=== PATIENT | female | born 1940 | race Caucasian/White ===

== ENCOUNTER → 2018-01-20 | Outpatient (CLI) | payer OTHER, MEDICARE ==
[~2018-01-20] MED LIST: ASPIRIN81 M2 PO; ATENOLOL 25 MG25 M1 PO; CO Q-10100 MG PO; COUMADIN 1MG TAB1 M1 PO; COUMADIN 2 MG TA2 M1 PO; COZAAR100 MG PO; FISH OIL 1,0001 EAC5 PO; FOLIC ACID0.8 MG PO; GLUCOPHAGE1000 MG PO; KLOR-CON 10 ER10 MEQ PO; LASIX 20 MG TAB20 MG PO; LEVOTHROID75 MCG PO; PACERONE 200 M200 M1 PO; VITAMIN B-12500 MCG PO; VITAMIN D31000 UNI2 PO; ZANTAC 150MG T150 M1 PO
== END ==
LOC: RAD 06:44
DX: J98.4 Other disorders of lung (principal); I51.7 Cardiomegaly; R06.00 Dyspnea, unspecified

== ENCOUNTER → 2018-02-04 | Outpatient (CLI) | payer OTHER, MEDICARE ==
[~2018-02-04] VITALS: Ht 147.3 cm; Wt 41.7 kg
[~2018-02-04] MED LIST changes: +CRESTOR40 MG PO; +DEMADEX20 MG PO; +DIGOXIN250 MCG PO; +ELIQUIS5 MG PO; +IRON325 PO; +LEVEMIR SUBQ; +LOPERAMIDE 2 MG2 M1 PO; +MULTI VITAMIN1 EACH PO; +NITROGLYCERIN0.4 MG PO; +SYNTHROID75 MCG PO; +SYNTHROID88 MCG PO
--- NOTE | ~2018-02-04 | CATHLAB ---
[facility] [address] [place] [address] INVASIVE PROCEDURE REPORT Name: ADRIANABLAKE Room #: REG ROSALIE Stanford#: [id number] Admission: 02/04/18 Attend Phys: Jian Krishna, Discharge: Date of : 38 Date of Service: 02/04/18 1710 Report #: [id number] THIS REPORT FOR: //name// APPROVED REPORT Study performed: 02/04/2018 08:48:29 Patient Details Patient Status: Out-Patient Room #: The patient is a 77 year-old female Event Personnel Jian Krishna Cloud Physicist, Aleta GlezR, Misael Gonzales Amber Monitor, Zachery Wagner RN elevator service mechanic Performed Art Access - R femoral artery* Dio Access - R femoral vein Right and Left Heart Cath w/or w/o Coronarie [id number] [facility] Aortogram Abdominal Peripheral Angio 158314 Hemostasis w/ Mynx 80761 Initial Mod Sed Same Phys/QHP Gr5y 075155 83012 Mod Sed Same Phys/QHP Ea 754787 Indication Chest pain Procedure Narrative The patient was brought electively to the Cardiac Catheterization Laboratory and was prepped and draped in a sterile manner. The Right Groin^ was infiltrated with 1% Lidocaine subcutaneous anesthesia. A Right Heart Catheterization was performed with a 7 Fr. [place]-Klaus catheter and pressure were recorded. Cardiac outputs were obtained by the Thermal Dilution method. A PINNACLE 6FR Sheath #[id number] sheath was inserted into the RFA^. Coronary angiography was performed using coronary diagnostic catheters. The right coronary system was accessed and visualized with a JR 4 catheter. The left coronary system was accessed and visualized with a JL 4 catheter. The left ventricle was accessed and visualized with a Pigtail catheter. Left ventriculogram was performed in BEAR projection. An aortogram of the abdominal aorta was performed. Pre-demployment femoral angiogram was performed . Closure device was deployed with a 6 Fr Mynx. Hemostasis was obtained with manual pressure following sheath removal without any complications. The patient tolerated the procedure well and there were no complications associated with the procedure. There was no hematoma. [address] [address] INVASIVE PROCEDURE REPORT Name: SUKHWINDERBAOBLAKE Room #: [facility] Hien#: [id number] Admission: 02/04/18 Attend Phys: Jian Krishna, Discharge: Date of : 38 Date of Service: 02/04/18 1710 Report #: [id number] Intraoperative Conscious Sedation Sedation start time: 09:11 Case end Time: 10:00 Fentanyl 25 mcg Versed 0.5 mg Fluoro Time: 6.50 minutes Dose: DAP 2489.00 cGycm2 230 mGy Contrast Type and Amount: Omnipaque 145 ml Hemodynamics The right atrial mean pressure is 18 mmHg. The right ventricular pressure is 103/7 mmHg. The pulmonary artery pressure is 102/33 mmHg with a mean of 59 mmHg. The mean pulmonary capillary wedge pressure is 23 mmHg. The aortic pressure is 169/79 mmHg with a mean of 64 mmHg. The left ventricular pressure is 154/12 mmHg with a mean of mmHg. The left ventricular end diastolic pressure is 10 mmHg. The cardiac output using thermo method is 2.40 L/min. The cardiac index using thermo method is 1.83 L/min/m2. Conclusion #1 successful right heart catheterization with severe pulmonary hypertension see hemodynamics above. #2 normal left ventricular size with hyperdynamic LV function EF 65-70% #3 abdominal aortogram revealed mild diffuse aortic disease with moderate stenosis in the mid aorta with calcification not flow limiting iliac system and renal arteries appear patent #4 left main mildly calcified widely patent giving rise to LAD and circumflex #5 LAD with mild in-stent restenosis proximally for 30-40% and then a proximal mid vessel lesion of 70-75% with brisk flow around the apex. #6 circumflex OM nondominant with proximal half of this vessel previously stented with mild in-stent restenosis high-grade lesion on a the first her would be second ostial OM this is small calibered previously noted. Distal OM widely patent #7 dominant right coronary proximal stents with mild restenosis mid vessel 30-40% PDA small but widely patent Recommendations and plan: Due to aggressive risk factor modification. Severe pulmonary hypertension is noted. Appears to be primary pulmonary hypertension. Dr. Cabrera Koo a pulmonary to follow-up shortly. We will follow LAD lesion. Could be intervened on and consistent with mild anterior wall ischemia on the nuclear test. However with this severe pulmonary hypertension her symptoms I believe her [facility] [address] [address] INVASIVE PROCEDURE REPORT Name: BLAKE WRIGHT Room #: [facility].RKat#: [id number] Admission: 02/04/18 Attend Phys: Jian Krishna, Discharge: Date of : 38 Date of Service: 02/04/181709 Report #: [id number] predominantly due to her pulmonary pressures. Possible intervention to LAD and later date <ELECTRONICALLY SIGNED> By: Jian Krishna MD, FACC 02/04/181709 09 09 Jian Krishna MD, FACC /INF
--- NOTE | ~2018-02-04 | EKG ---
[place] [address] [facility] [place] [address] ELECTROCARDIOGRAM REPORT Name: BLAKE WRIGHT Room #: [facility]#: [id number] Admission: 02/04/18 Attend Phys: Jian Krishna MD, Discharge: Date of : 38 Report #: [id number] THIS REPORT FOR: //name// [facility] Test Date: 2018-02-04 Test Time: 07:43:00 Pat Name: BLAKE WRIGHT Department: Room: Gender: F Salesforce Administrator: Gail MANCIA : 1940 Requested By: Jian Krishna Order Number: [id number] MD: Eloy Garcia Measurements Intervals [place] Rate: 56 P: 0 AR: 69 QRS: 41 QRSD: 89 T: -88 QT: 402 QTc: 388 Interpretive Statements Atrial fibrillation LVH with secondary repolarization abnormality Compared to ECG 07/30/2006 07:47:57 Atrial fibrillation is now present ST segment abnormality is more pronounced Electronically Signed On 02-04-2018 9:01:45 [employer]ORE [employer] by Eloy Garcia [email or web address] <ELECTRONICALLY SIGNED> By: Eloy Garcia MD, [facility] 02/04/1801 0743 Eloy Garcia MD, [facility] /EPI
[2018-02-04 07:41] VITALS: BP 178/78
[2018-02-04 07:42] LABS: HEMATOCRIT 36.2 % (37.0-47.0); HEMOGLOBIN 12.1 gm/dL (12.0-15.0); MCH 27.9 pg (26.0-34.0); MCHC 33.4 g/dL (28.0-37.0); MCV 83.7 fL (80.0-100.0); RBC 4.32 mil/uL (4.20-5.00); RDW 15.2 % (10.5-14.5); WBC 6.9 thou/uL (4.0-11.0)
[2018-02-04 07:53] LABS: CALCIUM 9.6 mg/dL (8.5-10.1); CREATININE 0.9 mg/dL (0.6-1.0); POTASSIUM 3.3 mmol/L (3.5-5.1)
== END | disposition home or self-care (01) ==
LOC: CATH 07:13
PROVIDERS: Internal Medicine Cardiovascular Disease
DX: I25.10 Atherosclerotic heart disease of native coronary artery without angina pectoris (principal); I70.0 Atherosclerosis of aorta; I11.0 Hypertensive heart disease with heart failure; I50.9 Heart failure, unspecified; K21.9 Gastro-esophageal reflux disease without esophagitis; E11.9 Type 2 diabetes mellitus without complications; E03.9 Hypothyroidism, unspecified; I48.91 Unspecified atrial fibrillation; I25.2 Old myocardial infarction; J44.9 Chronic obstructive pulmonary disease, unspecified; E78.5 Hyperlipidemia, unspecified; Z79.4 Long term (current) use of insulin; Z82.49 Family history of ischemic heart disease and other diseases of the circulatory system; Z98.42 Cataract extraction status, left eye; Z98.890 Other specified postprocedural states; Z79.01 Long term (current) use of anticoagulants; Z90.710 Acquired absence of both cervix and uterus; Z88.8 Allergy status to other drugs, medicaments and biological substances

== ENCOUNTER → 2018-02-06 | Outpatient (CLI) | payer OTHER, MEDICARE | LOC: RAD 01-27 10:07 | DX: J98.4 Other disorders of lung (principal); K44.9 Diaphragmatic hernia without obstruction or gangrene; I27.20 Pulmonary hypertension, unspecified; Z86.718 Personal history of other venous thrombosis and embolism ==

== ENCOUNTER → 2019-10-15 | Outpatient (CLI) | payer OTHER, MEDICARE | LOC: SJCVCIMAG 06-10 10:00 | PROVIDERS: ATTEND Internal Medicine Cardiovascular Disease | DX: R94.31 Abnormal electrocardiogram [ECG] [EKG] (principal); I08.1 Rheumatic disorders of both mitral and tricuspid valves; I11.9 Hypertensive heart disease without heart failure; I25.10 Atherosclerotic heart disease of native coronary artery without angina pectoris; E11.9 Type 2 diabetes mellitus without complications; I27.20 Pulmonary hypertension, unspecified; I34.0 Nonrheumatic mitral (valve) insufficiency; I48.0 Paroxysmal atrial fibrillation; D68.59 Other primary thrombophilia; E78.00 Pure hypercholesterolemia, unspecified; Z79.4 Long term (current) use of insulin ==

== ENCOUNTER → 2020-06-09 | Outpatient (CLI) | payer OTHER, MEDICARE | LOC: SJCVC 11:16 | PROVIDERS: ATTEND Internal Medicine Cardiovascular Disease | DX: R94.31 Abnormal electrocardiogram [ECG] [EKG] (principal); I48.0 Paroxysmal atrial fibrillation; I25.10 Atherosclerotic heart disease of native coronary artery without angina pectoris; I10 Essential (primary) hypertension; E78.00 Pure hypercholesterolemia, unspecified; E11.9 Type 2 diabetes mellitus without complications; I27.20 Pulmonary hypertension, unspecified; D68.59 Other primary thrombophilia; F41.9 Anxiety disorder, unspecified; Z79.4 Long term (current) use of insulin; Z79.82 Long term (current) use of aspirin; Z79.899 Other long term (current) drug therapy; Z88.1 Allergy status to other antibiotic agents; Z88.8 Allergy status to other drugs, medicaments and biological substances ==

== ENCOUNTER → 2020-11-22 | Outpatient (CLI) | payer OTHER, MEDICARE | LOC: SJCVCIMAG 09:41 | PROVIDERS: ATTEND Internal Medicine Cardiovascular Disease | DX: R94.31 Abnormal electrocardiogram [ECG] [EKG] (principal); I08.8 Other rheumatic multiple valve diseases; I11.9 Hypertensive heart disease without heart failure; I25.10 Atherosclerotic heart disease of native coronary artery without angina pectoris; E78.00 Pure hypercholesterolemia, unspecified; R00.1 Bradycardia, unspecified; E11.9 Type 2 diabetes mellitus without complications; Z79.4 Long term (current) use of insulin; D68.59 Other primary thrombophilia; I48.0 Paroxysmal atrial fibrillation; I34.0 Nonrheumatic mitral (valve) insufficiency; I27.20 Pulmonary hypertension, unspecified; Z79.82 Long term (current) use of aspirin; Z79.899 Other long term (current) drug therapy; Z88.8 Allergy status to other drugs, medicaments and biological substances ==